=== PATIENT | male | born 1950 | race Caucasian/White ===

== ENCOUNTER 2023-09-28 15:47 | Inpatient (IN) | payer MEDICARE, OTHER, SELFPAY ==
[2023-09-28 14:17] VITALS: BMI 31.9
[2023-09-28 14:22] VITALS: BP 130/76
--- NOTE | 2023-09-28 14:28 | ED.MUSCINJ ---
HPI-Injury
General
Chief Complaint: Musculo-Skeletal Complaint
Source: patient
Exam Limitations: none
Time Seen by Provider: 09/28/23 14:17
Travel History
Have you had any contact with someone who has COVID-19?: No
Do you have any symptoms of coronavirus? Fever > 100 degrees, chills, cough, shortness of breath, sore throat, loss of taste or smell, muscle aches, or headache?: No
History of Present Illness-Injury
Initial Injury comments:
73-year-old male presents via EMS after fall 3 steps off a ladder with right elbow pain. No head injury no chest pain abdominal pain or leg pain. He was given 100 mics of fentanyl en route. No other complaints at this time. He is not
anticoagulated. He is [id number]
Past History
Past History
ED Past Medical History: CVA, HTN, Hypercholesterolemia and Other (Diverticulitis)
ED Past Surgical History: Bowel resection and Cardiac
Social History
Tobacco: Non-smoker
Alcohol: None
Drug: None
Personal:
Phy Exam
Physical Exam
Physical Exam:
General: Well-appearing male nontoxic no acute respiratory distress
HEENT: Normocephalic atraumatic
Heart: Regular rate and rhythm no murmurs
Lungs: Clear no wheeze
Musculoskeletal exam: Right elbow swollen tender palpation. Right wrist nontender spine and chest wall nontender hips with good range of motion
Extremities: No cyanosis
Vascular: 2+ radial pulse right wrist neurologic: Good sensation right hand alert and oriented times
Injury Course
Orders/Labs/Results
Orders:
Orders
09/28/23 14:26
HYDROmorphone [Dilaudid] 0.5 mg IV NOW STA
CR Elbow - Right Min 2 View Urgent
Reason For Exam: fall, pain
09/28/23 15:27
CT Upper Ext W/o Iv Cont Rt Urgent
Comment:
Reason For Exam: fracture/dislocation
09/28/23 15:36
HYDROmorphone [Dilaudid] 0.5 mg IV NOW STA
MDM/Problems Addressed
Differential Diagnosis Includes:
Fall off ladder from 3 feet with right elbow pain. No other evidence of trauma elsewhere. Suspect possible fracture versus dislocation. Dilaudid ordered x-rays pending
*Critical Care Note
Total Time (30-74mins, 75-104mins- exclusive of procedures): Not Applicable
Update Note
Update Note:
X-rays demonstrate comminuted fracture of the olecranon with other fracture fragments in and around the elbow with unknown source but there is associated posterior dislocation as well. Discussed findings with orthopedics, Dr. Solis who recommended
splint in position of comfort CT scan admit for OR tomorrow. Patient has a history of hypertension hyperlipidemia prostate cancer and he requested medical admission
ED Attending Note
-
Portions of this chart may have been created with voice recognition software.� Occasional wrong word or��sound alike� substitutions may have occurred due to the inherent limitations of voice recognition software.
Discharge Plan
Departure
Patient Disposition: Admit
Date of Disposition: 09/28/23
Time of Disposition: 15:42
Admit to: Med/Surg
Presentation/result/management discussed w/ accepting MD/DO: Hospitalist
Discharge Problem:
Closed fracture dislocation of right elbow
Prescriptions:
No Action
atorvastatin 20 MG tablet
20 mg PO HS
sildenafil [Viagra] 25 MG tablet
25 mg PO DAILYPRN PRN (Reason: ed)
losartan 50 mg tablet
50 mg PO HS
alprazolam 0.5 mg tablet
0.25 - 0.5 mg PO DAILYPRN PRN (Reason: anxiety)
calcium carbonate 500 mg calcium (1,250 mg) Tablet
500 mg PO DAILY
cholecalciferol (vitamin D3) [Vitamin D3] 25 mcg (1,000 unit) Tablet
25 mcg PO DAILY
aspirin 81 MG tablet,chewable
81 mg PO HS
pantoprazole 40 mg Tablet,Delayed Release (Dr/Ec)
40 mg PO DAILY Qty: 30 0RF
prednisone 50 mg Tablet
50 mg PO DAILY Qty: 5 0RF
meclizine 12.5 mg tablet
12.5 mg PO TID PRN (Reason: vertigo) Qty: 20 0RF
Referrals:
Ej Joy MD [Family Provider] -
Interventions
Interventions:
*Risk Screen - Suicide Last Done: 09/28/23 14:23
*General Assessment Last Done: 09/28/23 14:23
*Neglect/Abuse Screening Last Done: 09/28/23 14:23
*ED COVID-19 Vaccine History Last Done: 09/28/23 14:23
ED-Musculoskeletal Assessment Last Done: 09/28/23 14:21
Discharge Date and Time
Print Language: BERMUDIAN
[2023-09-28] MEDS: DILAUDID 0.5 MG IV ×2 (14:33→15:45)
--- NOTE | 2023-09-28 15:41 | HPS.HSE ---
Family Physician
-
Family Physician: Ej Joy
Chief Complaint
-
Right elbow injury
History of Present Illness
73 years old male who was at home and sustained a mechanical fall. He fell on the right elbow and immediately injured it with mild skin bruising but noticed swelling and tenderness. In the emergency room, x-ray showed comminuted proximal ulnar
fracture with posterior dislocation and joint effusion. He denied head trauma. Patient is ordered a splint and to have scan of the elbow for further evaluation. Anticipated surgery in OR tomorrow.
Medical History
Past Medical History
Past Medical History: Reports HTN, Hypercholesterolemia and Other (hx of atrial myxoma s/p surgery )
Past Surgical History: Reports Other (No recent major surgery )
Social History
Tobacco: Non-smoker
Alcohol: None
Drug: None
Personal:
Living: With Family
Employment: Retired
Family History
Family History: Not pertinent
Allergies / Home Medications
Allergies reflects when Allergies were last updated in [employer].
Home Medications with original date entered in [employer]
Allergy/Medication List:
Allergies
Allergy/AdvReac Type Severity Reaction Status Date / Time
morphine Allergy SEE BELOW Verified 02/12/23 17:15
Home Medications
aspirin 81 mg tablet,delayed release 81 mg PO HS 09/28/23
atorvastatin 40 mg tablet 40 mg PO HS 09/28/23
calcium carbonate 500 mg PO DAILY 09/28/23
cholecalciferol (vitamin D3) 25 mcg (1,000 unit) tablet 25 mcg PO DAILY 09/28/23
fluoxetine 20 mg tablet 20 mg PO DAILY 09/28/23
ibuprofen 200 mg tablet 400 mg PO HSPRN PRN mild pain 09/28/23
losartan 50 mg tablet 50 mg PO HS 09/28/23
multivitamin 1 tab PO DAILY 09/28/23
Review of Systems
-
History Source: Patient
A 12 point ROS was completed and negative except as noted: Yes
Constitutional: Denies Fever
EENT: Denies Sore Throat
Respiratory: Denies Cough
Cardiac: Denies Chest Pain
Abdomen/GI: Denies Abdominal Pain
: Denies Dysuria
Musculoskeletal: Reports Joint Pain (Right elbow with swelling )
Skin: Denies Itching
Neurological: Denies Headache
Endocrine: Denies Temp Intolerance
Psych: Denies Panic Disorder
Physical Exam
Vital Signs
Vital Signs
Temp Pulse Resp BP Pulse Ox
98.7 F 66 18 130/76 95
09/28/23 14:22 09/28/23 14:22 09/28/23 14:22 09/28/23 14:22 09/28/23 14:22
Physical Exam
General: Well Developed, Well Nourished and No Apparent Distress
HEENT: Anicteric, Moist mucous membranes and Atraumatic
Respiratory: Clear
Cardiac: S1/S2 and Regular Rhythm
GI: Soft and Non Tender
Rectal: No Maroon Stools
Genito-urinary: No costovertebral tender
Musculoskeletal: No Cyanosis and Other (Right elbow with swelling and tenderness )
Skin: Warm and Dry
Neuro: AO x 3 and Nonfocal/grossly intact; No Slurred Speech, Facial Droop or Tremors
Psych: Calm and Intact Judgment/Insight
Impression/Plan
-
73 male post fall at home with right elbow injury
# Acute right comminuted proximal ulnar fracture with posterior dislocation and joint effusion at the elbow
Admit to hospital
Pain control. Discussed with patient, he had oxycodone in past which helped. Will do Tylenol TID, PRN oxycodone and IV Morphine PRN.
Consult Orthopedic for evaluation and treatment. CT of elbow is ordered.
# Essential HTN
No hx of headache or chest pain
No changes intended to home meds. Add PRN Hydralazine.
#Pre- op evaluation
Patient denied history of heart disease. He had history of atrial myxoma surgery years ago. No history of chest pain or angina. No history of heart failure.
Will do EKG. Will order regular blood work CBC and BMP
# DVT prophylaxis, Thromboguards
Total time spent to see the patient, examine the patient on the floor, review data and lab results, discuss treatment plan with patient, ER doctor, nursing staff around 75 minutes
--- NOTE | 2023-09-28 16:05 | PHANOTE ---
09/28/2023, med rec tech, pt. states to be taking Fluoxetine 20 mg daily; however, he has not filled this med. recently at his pharmacy and per [facility] records, it was discontinued on 04/06/2023.
[2023-09-28] MEDS: ROXICODONE 5 MG PO (16:49)
[2023-09-28] MEDS: DILAUDID 1 MG IV ×2 (17:48→21:55)
[2023-09-28 17:55] VITALS: BP 156/79
--- NOTE | 2023-09-28 18:16 | PTCARENOTE ---
Received patient from ER at 1745, awake and alert. C/o severe pain in Right elbow. Right elbow with toro wrap clean dry intact, fingers warm to touch, arm up on pillow. Oriented to room, also in room. Denied any questions. Call hanna in
reach.
[2023-09-28 18:19] LABS: Hematocrit 37.2 % (39.0-52.0); Hemoglobin 12.8 g/dL (13.0-18.0); Mean Corp Hgb Conc. 34.4 g/dL (33.0-37.0); Mean Corpuscular Hgb 28.3 pg (27.0-31.0); Mean Corpuscular Volume 82.3 fL (80.0-94.0); Mean Platelet Volume 10.1 fL (7.4-10.4); Platelet Count 241 10^3/uL (130-400); Red Blood Cell Count 4.52 10^6/uL (4.70-6.10); Red Cell Dist. Width 13.1 % (11.5-14.5); White Blood Cell Count 13.4 10^3/uL (4.8-10.8)
[2023-09-28 18:59] LABS: ALT (SGPT) 31 U/L (0-50); AST (SGOT) 36 U/L (17-59); Albumin 3.7 g/dl (3.5-5.0); Alkaline Phosphatase 117 U/L (38-126); Blood Urea Nitrogen 17 mg/dl (9-20); Calcium 9.8 mg/dl (8.4-10.2); Carbon Dioxide 29 mmol/L (22-30); Chloride 104 mmol/L (98-107); Estimated Creatinine Clearance 92 ml/min; Glucose 135 mg/dl (70-99); Potassium 4.5 mmol/L (3.5-5.1); Sodium 138 mmol/L (135-145); Total Bilirubin 0.5 mg/dl (0.2-1.3); Total Protein 6.1 g/dl (6.3-8.2); eGFR > 60.00
[2023-09-28] MEDS: COZAAR 50 MG PO (21:55)
[2023-09-28] MEDS: MELATONIN 3 MG PO (21:55)
[2023-09-28] MEDS: LIPITOR 40 MG PO (21:55)
[2023-09-28] MEDS: TYLENOL 1000 MG PO (21:56)
[2023-09-28] MEDS: LIPITOR PO (21:56)
[2023-09-28 22:15] VITALS: BP 164/80
[2023-09-29] VITALS (7 sets, daily range): BP systolic 114–125; BP diastolic 57–84
[2023-09-29] MEDS: DILAUDID 1 MG IV (04:19)
[2023-09-29 07:36] LABS: Hematocrit 37.3 % (39.0-52.0); Hemoglobin 12.5 g/dL (13.0-18.0); Mean Corp Hgb Conc. 33.5 g/dL (33.0-37.0); Mean Corpuscular Hgb 28.4 pg (27.0-31.0); Mean Corpuscular Volume 84.8 fL (80.0-94.0); Mean Platelet Volume 10.6 fL (7.4-10.4); Platelet Count 232 10^3/uL (130-400)
[2023-09-29 07:52] LABS: Blood Urea Nitrogen 15 mg/dl (9-20); Calcium 9.2 mg/dl (8.4-10.2); Carbon Dioxide 25 mmol/L (22-30); Chloride 103 mmol/L (98-107); Estimated Creatinine Clearance 118 ml/min; Glucose 124 mg/dl (70-99); Potassium 4.4 mmol/L (3.5-5.1); Sodium 136 mmol/L (135-145); eGFR > 60.00
--- NOTE | 2023-09-29 08:03 | CON.ORTHO ---
Consultation
-
Date/Time Consultation Requested: 09/28/2023; time unknown
Date/Time Consultation Performed: 09/29/2023; 0745
Requesting Provider: unknown
Performing Provider: Pooja Greenwood PA-C for Dr. Josesito Renee
Reason for Consultation: Right elbow fracture-dislocation
Consultation - Orthopedics
History
Mr. Meza is a 73 yo M with PMH of HTN, Hypercholesterolemia and atrial myxoma s/p surgery seen today for his right elbow. He reports he fell off a ladder yesterday and landed directly on his right elbow. He reports immediate onset of pain and
swelling in the elbow. He presented to ED where x-rays revealed a fracture-dislocation of his right elbow. He reports quite a bit of pain overnight, but states he is comfortable at present.
He denies history of DM, DVT, CVA or IA. He does not take a daily blood thinner. He denies history of difficulty with anesthesia in the past. He lives at home with his .
H/o of left TKA with [facility]. He did recently complete radiation for prostate cancer through [facility].
Allergies / Home Medications
Allergy/AdvReac Type Severity Reaction Status Date / Time
morphine Allergy SEE BELOW Verified 02/12/23 17:15
�Medication �Instructions �Recorded
aspirin 81 mg tablet,delayed 81 mg PO HS Blood Clot 09/28/23
release Prevention/Tx
atorvastatin 40 mg tablet 40 mg PO HS High Cholesterol 09/28/23
calcium carbonate 500 mg PO DAILY Supplement 09/28/23
cholecalciferol (vitamin D3) 25 25 mcg PO DAILY Supplement 09/28/23
mcg (1,000 unit) tablet
fluoxetine 20 mg tablet 20 mg PO DAILY depression 09/28/23
ibuprofen 200 mg tablet 400 mg PO HSPRN PRN mild pain 09/28/23
losartan 50 mg tablet 50 mg PO HS Blood Pressure 09/28/23
multivitamin 1 tab PO DAILY Supplement 09/28/23
Vital Signs / Lab Results
Temp Pulse Resp BP Pulse Ox
98.1 F 73 18 164/80 96
09/28/23 22:15 09/28/23 22:15 09/28/23 22:15 09/28/23 22:15 09/28/23 22:15
09/29/23 05:47
09/29/23 05:47
XR Right Elbow IMPRESSION:
Comminuted proximal ulnar fracture with posterior dislocation and joint effusion at the elbow as detailed above.
CT Right Elbow FINDINGS:
>Posterior dislocation of the ulna and radius relative to the distal humeral trochlea and capitellum. Comminuted fracture of the ulna including a dominant oblique component through the proximal diaphysis and a displaced fracture of the coronoid
process. Smaller displaced fractures at the ventral margin of the radial head and the adjacent posterior capitellum on the basis of impaction. Multiple small displaced fracture fragments about the elbow joint.
>Large complex elbow joint effusion compatible with a hemarthrosis.
Directed exam of the right upper extremity reveals splint in place. Good color of fingers distally. Patient able to wiggle fingers. Sensation intact to light touch above and below splint. Capillary refill <2 seconds.
Assessment / Plan
Right elbow fracture dislocation
--Unfortunately, Waldo sustained a comminuted fracture of his right ulna with associated dislocation. This will require surgical intervention. The risks, benefits, alternatives, recovery process and potential complications were discussed. Waldo
would like to proceed with surgical intervention of his fracture. We will proceed with open reduction internal fixation of his right elbow fracture dislocation later today under the direction of Dr. Renee. Surgical and blood consent signed and in
patient's chart.
--NPO until surgery.
--Maintain splint until surgery. NWB to RUE.
--Continue pain control prn. Ice prn for pain and edema control.
--Abx ordered to OR.
[2023-09-29] MEDS: TYLENOL 1000 MG PO ×2 (08:29→21:54)
[2023-09-29] MEDS: DILAUDID 1.5 MG IV (08:30)
--- NOTE | 2023-09-29 10:10 | W.PN.HOSP.TC ---
Today's Communication/Plan
-
.
Assessment / Plan
Assessment / Plan
73 years old male who was at home and sustained a mechanical fall.
Physical Exam
General: Well Developed, Well Nourished and No Apparent Distress
HEENT: Anicteric, Moist mucous membranes and Atraumatic
Respiratory: Clear
Cardiac: S1/S2 and Regular Rhythm
GI: Soft and Non Tender
Rectal: No Maroon Stools
Genito-urinary: No costovertebral tender
Musculoskeletal: No Cyanosis and Other (Right elbow in dressing)
Skin: Warm and Dry
Neuro: AO x 3 and Nonfocal/grossly intact; No Slurred Speech, Facial Droop or Tremors
Psych: Calm and Intact Judgment/Insight
73 male post fall at home with right elbow injury
# Acute right comminuted proximal ulnar fracture with posterior dislocation and joint effusion at the elbow
Continue pain control. 1 mg Dilaudid not enough, will increase it to 1.5 mg
c/w Tylenol 1 gm TID
c/w PRN oxycodone.
Surgery today
Will give pre-op IV Ancef and for 24 hours.
Appreciate ortho help.
# Leukocytosis, reactive
No fevers.
# Essential HTN
c/w PM Losartan
No hx of headache or chest pain
No changes intended to home meds. Add PRN Hydralazine.
#Pre- op evaluation
Patient in extreme discomfort from fracture. He denied history of heart disease. He had history of atrial myxoma surgery years ago. No history of chest pain or angina. No history of heart failure.
EKG SR, no acute ischemic changes, no changes from previous EKG. No prohibitive risks for surgery.
# DVT prophylaxis, Thrombo-guards
Total time spent to see the patient, examine the patient on the floor, review data and lab results, discuss treatment plan with patient, ortho, nursing staff around 55 minutes
Anticipated Discharge: 24 - 48 hours
Subjective/Interval History
-
Date of Service: September 29, 2023
He has pain in his right elbow
Objective Data
-
Labs:
Laboratory Results
09/29/23
05:47
WBC 12.0 H
Hgb 12.5 L
Hct 37.3 L
Plt Count 232
Sodium 136
Potassium 4.4
Chloride 103
Carbon Dioxide 25
BUN 15
Creatinine 0.7
Glucose 124 H
Calcium 9.2
Vital Signs:
Vital Signs
Temp Pulse Resp BP Pulse Ox
97.6 F 69 18 123/84 96
09/29/23 07:00 09/29/23 07:00 09/29/23 07:00 09/29/23 07:00 09/29/23 07:00
I&O
09/28/23 09/29/23 09/30/23
06:59 06:59 06:59
Intake Total 120 / 120
Output Total 450 / 450
Balance -330 / -330
[2023-09-29] MEDS: ROXICODONE 5 MG PO (11:28)
[2023-09-29] MEDS: ANCEF 5 IV (12:47)
--- NOTE | 2023-09-29 14:37 | PTCARENOTE ---
Pt left on hospital bed with transport to the OR.
--- NOTE | 2023-09-29 16:29 | CM ---
Patient not seen, patient to OR. CM will continue to attempt to follow for assessment.
[2023-09-29] MEDS: TYLENOL PO (20:51)
[2023-09-29] MEDS: NSS 1000 IV (20:56)
[2023-09-29] MEDS: ANCEF IV (21:34)
--- NOTE | 2023-09-29 21:40 | TRANSFER ---
Pt arrived to [facility] from PACU in bed. Pt denies pain at this time and he is AAOx2 to person and time but not place. Pt oriented to room and call hanna within reach. NS infusing at 80 mL/hr per order. VS on transfer stable.
[2023-09-29] MEDS: COZAAR 50 MG PO (21:54)
[2023-09-29] MEDS: ASPIRIN 325 MG PO (21:55)
[2023-09-29] MEDS: LIPITOR 40 MG PO (22:02)
[2023-09-30] VITALS (7 sets, daily range): BP systolic 112–126; BP diastolic 49–61; PULSE 79; O2SAT 93–97
[2023-09-30] MEDS: ANCEF 5 IV ×2 (01:59→09:58)
[2023-09-30 07:23] LABS: Hemoglobin 10.9 g/dL (13.0-18.0); Mean Corpuscular Hgb 27.7 pg (27.0-31.0); Mean Platelet Volume 10.3 fL (7.4-10.4); Platelet Count 216 10^3/uL (130-400); Red Blood Cell Count 3.93 10^6/uL (4.70-6.10); Red Cell Dist. Width 13.4 % (11.5-14.5); White Blood Cell Count 11.6 10^3/uL (4.8-10.8)
--- NOTE | 2023-09-30 07:27 | W.PN.ORTHO ---
Today's Communication / Plan
-
Sling right upper extremity
Nonweightbearing right upper extremity
Aspirin for DVT prophylaxis
Patient had an interscalene block last evening which is still working
Return to office 2 weeks for skin clip removal
Assessment
.
Dressing:
Clean, dry and intact.
Plan
.
Surgery / Date: ORIF right elbow 09/28 Ritting
DVT Prophylaxis: Aspirin
Activity:
Out of bed.
PT/OT
Discharge Plan: Home
Subjective
.
.:
Patient resting comfortably. Interscalene block appears to still be working. He cannot feel his fingers or move them. Hand is warm to touch and pulses palpable
Vital Signs and Labs
.
Vital Signs and Labs:
Lab Results
09/29/23 05:47
Temp Pulse Resp BP Pulse Ox
97.6 F 70 18 115/59 95
09/30/23 03:51 09/30/23 03:51 09/30/23 03:51 09/30/23 03:51 09/30/23 03:51
[2023-09-30] MEDS: ASPIRIN 325 MG PO (08:34)
[2023-09-30] MEDS: TYLENOL 1000 MG PO ×2 (08:34→15:04)
[2023-09-30] MEDS: SENOKOT 17.1999999999999993 MG PO (08:34)
[2023-09-30] MEDS: COLACE 100 MG PO (08:34)
--- NOTE | 2023-09-30 10:36 | W.PN.HOSP.TC ---
Addendum entered and electronically signed by Teja Ravi MD 09/30/23 18:09:
Addendum
Patient was seen again after lunch. Pain is controlled. He would like to go home with a prescription of oxycodone as he was familiar with that medicine from previous knee surgery. Discussed with orthopedic doctor. Patient did not have open wound.
Discussed with case management director, given prescription for outpatient PT/OT.
Total discharge time spent to see the patient, examine the patient on the floor, review data and lab results, discuss discharge plan with patient and his , ,case management director, nursing staff around 65 minutes
Original Note:
Today's Communication/Plan
-
Possible dc later today or tomorrow depending on pain control
Assessment / Plan
Assessment / Plan
73 years old male who was at home and sustained a mechanical fall.
Physical Exam
General: Well Developed, Well Nourished and No Apparent Distress
HEENT: Anicteric, Moist mucous membranes and Atraumatic
Respiratory: Clear
Cardiac: S1/S2 and Regular Rhythm
GI: Soft and Non Tender
Rectal: No Maroon Stools
Genito-urinary: No costovertebral tender
Musculoskeletal: No Cyanosis and Other (Right elbow in dressing)
Skin: Warm and Dry
Neuro: AO x 3 and Nonfocal/grossly intact; No Slurred Speech, Facial Droop or Tremors
Psych: Calm and Intact Judgment/Insight
73 male post fall at home with right elbow injury
# Acute right comminuted proximal ulnar fracture with posterior dislocation and joint effusion at the elbow
Post Op Dx: Fracture dislocation, Monteggia variant, terrible triad, right elbow.
He underwent open reduction internal fixation of right olecranon/right coronoid, right radial head implant arthroplasty, elbow arthrotomy and internal joint stabilizer by Dr. Renee on 09/28. No complications reported
S/p nerve block in OR, now pain still under control
c/w Tylenol 1 gm TID
c/w PRN oxycodone, 5 and 10 mg dose.
pre-op IV Ancef and for 24 hours.
Appreciate ortho help.
# Leukocytosis, reactive
No fevers.
# Essential HTN
c/w PM Losartan
No hx of headache or chest pain
No changes intended to home meds. Add PRN Hydralazine.
# Mild acute blood loss anemia due to fracture.
# DVT prophylaxis, Thrombo-guards and aspirin 325mg QD.
Total time spent to see the patient, examine the patient on the floor, review data and lab results, discuss treatment plan with patient, ortho, nursing staff around 57 minutes
Anticipated Discharge: Within 24 hours
Subjective/Interval History
-
Date of Service: September 30, 2023
No chest pain
No sob
No fevers
Objective Data
-
Labs:
Laboratory Results
09/30/23
06:53
WBC 11.6 H
Hgb 10.9 L
Hct 33.0 L
Plt Count 216
Vital Signs:
Vital Signs
Temp Pulse Resp BP Pulse Ox
97.6 F 68 20 126/56 95
09/30/23 07:00 09/30/23 07:00 09/30/23 07:00 09/30/23 07:00 09/30/23 07:00
I&O
09/29/23 09/30/23 10/01/23
06:59 06:59 06:59
Intake Total 120 / 120 530 / 530 800 / 800
Output Total 450 / 450 700 / 700
Balance -330 / -330 -170 / -170 800 / 800
--- NOTE | 2023-09-30 12:21 | CM ---
Patient seen bedside, initial assessment completed. Patient reports he resides with his in a multiple story home, [facility], 13 steps to second floor. Patient does not use any DME currently, does have a walker and cane
after knee surgery in the past. Patient reports he has been working with outpatient therapy at , also has been to [facility] outpatient therapy, along with therapy in [place]. Patient confirms PCP Ej Joy, pharmacy [facility] on [facility].
Patient confirms prescription coverage through insurance, denies food insecurities at home. PT recommending outpatient therapy upon discharge, TT sent to Hospitalist for script for outpatient PT. Patient reports he does have transportation home,
reports he would prefer to discharge today. IMM reviewed, signed, placed in chart. CM will continue to follow for all discharge planning needs.
Plan; home with , will need script for outpatient therapy.
--- NOTE | 2023-09-30 18:06 | W.DCSUMMARY ---
Discharge Summary
Discharge Data
Date of Admission: 09/28/23
Date of Discharge: 09/30/23
-
Pending Results: No
Hospital Course
73 years old male presented after a fall, he landed on right upper extremity. Patient sustained complicated elbow fracture. Patient did not have head trauma. He did not lose consciousness. He did not have open wound other than mildly skin
abrasion. Patient was evaluated by orthopedic doctor. He underwent repair surgery including open reduction internal fixation, internal stabilizer and arthrotomy with arthroplasty of the right radial head by Dr. Renee on 09/29/23. No
complications reported. Patient tolerated diet well. He was given prescription of oxycodone for pain control. Patient used oxycodone in the past for knee surgery and reported good pain control. Patient was given prophylactic antibiotics. He
remained hemodynamically stable and was discharged in a stable condition to follow-up with orthopedic doctor in the outpatient setting.
Discharge Plan
-
Patient Disposition: Home (Routine Discharge)
Discharge Diagnosis/Procedures: Acute right comminuted proximal ulnar fracture with posterior dislocation and joint effusion at the elbow/ Fracture dislocation, Monteggia variant, terrible triad, right elbow.
s/p repair by on 09/28. No complications reported.
Use Tylenol 1000 mg three times a day, use one tablet 5 mg oxycodone for moderate pain, 10 mg ( two tablets) oxycodone for severe pain. Use Advil 200-4900 g as needed.
Diet: As tolerated
Referrals:
Josesito Renee MD [Active] - in two weeks
Ej Joy MD [Family Provider] -
Prescriptions:
New
oxycodone 5 mg tablet
5 mg PO Q6H PRN (Reason: moderate to severe pain) Qty: 30 0RF
senna 8.6 mg capsule
17.2 mg PO HS Qty: 30 0RF
Continued
multivitamin Tablet
1 tab PO DAILY
losartan 50 mg Tablet
50 mg PO HS
atorvastatin 40 mg Tablet
40 mg PO HS
aspirin 81 mg Tablet,Delayed Release (Dr/Ec)
81 mg PO HS
calcium carbonate 500 mg calcium (1,250 mg) Tablet
500 mg PO DAILY
ibuprofen 200 mg Tablet
400 mg PO HSPRN PRN (Reason: mild pain)
cholecalciferol (vitamin D3) 25 mcg (1,000 unit) Tablet
25 mcg PO DAILY
fluoxetine 20 mg Tablet
20 mg PO DAILY
Patient Comments:
09/28/2023, pt.'s pharmacy does not have recent fill of this med.; per [facility] records; this med. was discontinued on 04/06/2023; however; pt. states to be taking this med. daily.
Discharge Orders:
Discharge Patient (As Directed); Ordered 09/30/23
Ordered By: Teja Ravi
Discharge Date and Time
Discharge Date/Time: 09/30/23 16:05
Print Language: SYRIAC
== END 2023-09-30 16:05 | disposition home or self-care (01) | DRG 507 ==
LOC: 4 WEST ACU 15:47
PROVIDERS: ADMITTING PHYSICIAN Internal Medicine; CONSULT PHYSICIAN Orthopaedic Surgery Hand Surgery; EMERGENCY PHYSICIAN Emergency Medicine; FAMILY PHYSICIAN Internal Medicine
PROC: 0RSL04Z Reposition Right Elbow Joint with Internal Fixation Device, Open Approach (ICD-10-PCS; 2023-09-29)
PROC: 0RCL0ZZ Extirpation of Matter from Right Elbow Joint, Open Approach (ICD-10-PCS; 2023-09-29)
PROC: 0PRH0JZ Replacement of Right Radius with Synthetic Substitute, Open Approach (ICD-10-PCS; 2023-09-29)
PROC: 0PSK04Z Reposition Right Ulna with Internal Fixation Device, Open Approach (ICD-10-PCS; 2023-09-29)
DX: S52.271A Monteggia's fracture of right ulna, initial encounter for closed fracture (principal); D62 Acute posthemorrhagic anemia; W11.XXXA Fall on and from ladder, initial encounter; I10 Essential (primary) hypertension; E78.00 Pure hypercholesterolemia, unspecified
CPT/HCPCS: 73070; 73200; 76000; 80048; 80053; 85027; 93005; 96374; 96376; 97163; 97166; 99285

== ENCOUNTER → 2024-01-07 16:42 | Outpatient (REF) | payer MEDICARE, OTHER, SELFPAY | LOC: PAVMRI 16:42 | PROVIDERS: ATTENDING PHYSICIAN Anesthesiology Pain Medicine; FAMILY PHYSICIAN Internal Medicine | DX: M54.12 Radiculopathy, cervical region (principal) | CPT/HCPCS: 72141 ==

== ENCOUNTER → 2024-10-16 13:09 | Outpatient (REF) | payer MEDICARE, OTHER, SELFPAY | LOC: RAD 13:09 | PROVIDERS: ATTENDING PHYSICIAN Nurse Practitioner; FAMILY PHYSICIAN Internal Medicine | DX: M85.88 Other specified disorders of bone density and structure, other site (principal); C61 Malignant neoplasm of prostate; S42.301A Unspecified fracture of shaft of humerus, right arm, initial encounter for closed fracture | CPT/HCPCS: 77080 ==

== ENCOUNTER → 2024-10-24 10:53 | Outpatient (REF) | payer MEDICARE, OTHER, SELFPAY | LOC: HWRAD 10:53 | PROVIDERS: ATTENDING PHYSICIAN Nurse Practitioner Adult Health; FAMILY PHYSICIAN Internal Medicine | DX: R91.8 Other nonspecific abnormal finding of lung field (principal) | CPT/HCPCS: 71250 ==

== ENCOUNTER 2025-01-12 06:12 | Day surgery (SDC) | payer MEDICARE, OTHER, SELFPAY | END 2025-01-12 09:26 | disposition home or self-care (01) | LOC: GI 06:12 | PROVIDERS: ATTENDING PHYSICIAN Internal Medicine Gastroenterology | DX: R19.4 Change in bowel habit (principal); K57.30 Diverticulosis of large intestine without perforation or abscess without bleeding; K64.8 Other hemorrhoids; D12.2 Benign neoplasm of ascending colon; D12.3 Benign neoplasm of transverse colon; Z98.0 Intestinal bypass and anastomosis status | CPT/HCPCS: 45385; 45380; 88305 ==

== ENCOUNTER → 2025-02-20 09:33 | Outpatient (REF) | payer MEDICARE, OTHER, SELFPAY | LOC: HWRCS 09:33 | PROVIDERS: ATTENDING PHYSICIAN Internal Medicine; FAMILY PHYSICIAN Internal Medicine | DX: I49.3 Ventricular premature depolarization (principal); Z86.018 Personal history of other benign neoplasm; R09.89 Other specified symptoms and signs involving the circulatory and respiratory systems | CPT/HCPCS: 93306 ==

== ENCOUNTER → 2025-03-30 09:52 | Outpatient (REF) | payer MEDICARE, OTHER, SELFPAY | LOC: RAD 09:52 | PROVIDERS: ATTENDING PHYSICIAN Surgery Vascular Surgery; FAMILY PHYSICIAN Internal Medicine | DX: I71.40 Abdominal aortic aneurysm, without rupture, unspecified (principal) | CPT/HCPCS: 76770 ==